=== PATIENT | male | born 1950 | race Caucasian/White ===

== ENCOUNTER 2024-12-13 06:49 | Day surgery (SDC) | payer MEDICARE, OTHER, SELFPAY ==
--- OUTSIDE RECORDS SUMMARY | 2024-12-08 11:32 | XMS_ITS ---
Author Organization [facility] Address [address] [place] [phone] Care Team Providers Care Maternity Floor Supervisor Name Role Phone Xu CAMP, Gigi Primary Care Provider Jesus Amaya Jr REASON FOR VISIT colon screening Encounters Encounter Location Date Provider Diagnosis [facility] [address] [place] [phone] 11/28/2024 Jesus Barbosa Jr Plan Of Treatment Next Appt Details Provider Name:Jesus grimaldo Jr, 12/13/2024 08:20:00 AM, [address] [place] [address] , [place], [place], [phone], Progress Notes * BRADEN LAURENDOB:1950 (74 yo M)Acc No.[id number]:11/28/2024 Progress Notes Patient:?BRADEN LAUREN Provider:?Jesus Barbosa MD :1950???Age:74 Y???Sex:Male Sandip e:11/28/2024 Address:[address] [place], [place] [id number] Pcp:Gigi Mcnair MD Subjective: * Chief Complaints: * ???1. Colon screening. * Medical History:? Objective: * Vitals:? Assessment: Plan: * Treatment: * * The named appointment provid er may or may not be the originator of this progress note, and it is not deemed complete until electronically signed by the appointment provider. Sign off status: Pending * Provider:?Jesus Barbosa MD Date:?0 11/28/2024 Generated for Rosy gibbs/Natalie/Timothyitting on:?12/08/2024 11:31 AM EDT
--- OUTSIDE RECORDS SUMMARY | 2024-12-08 11:32 | XMS_ITS | Patient Health Record ---
Author Organization [facility] Address [address] [place] [address] Care Team Providers Care Retail Stocker Name Role Phone Gigi Mcnair MD Primary Care Provider Jesus Amaya Jr Unavailable [phone] Allergies No Known Allergies Reason For Referral No Information Medications Medication SIG (Take, Route, Frequency, Duration) Notes Start Date End Date Status Atorvastatin Calcium 80 MG Oral for 90 Days Active Metoprolol Succinate ER 25 MG TAKE 1 TABLET BY MOUTH EVERY DAY Oral for 90 Days Active Alfuzosin HCl ER 10 MG TAKE 1 TABLET BY MOUTH EVERYDAY AT BEDTIME Oral for 90 Days Active Vitamin D 2000 UNIT 1 capsule Orally Onc e a day for 30 day(s) Active Flomax 0.4 MG 1 capsule Orally QOD Active Atorvastatin Calcium 80 MG 1 tablet Oral ly Once a day Active Metoprolol Succinate ER 25 MG 1 tablet Orally Once a day Active Cabergoline 0.5 MG 1/2 tablet Orally ev rajni week Active Aspir-81 81 MG 1 tablet Orally Once a day Active Cabergoline 0.5 MG Oral for 84 Days Active Levothyroxine Sodium 25 MCG 1 tablet in the morning on an empty stomach Orally Once a day Active Immunizations Vaccine Route Administration Date Status Comme nts Flu vaccine no Preserv 3 and > Unknown 03/24/2017 Admin istered Influenza Unknown 05/27/2018 Administered Influenza Unknown 04/05/2024 Administered Social History AUDIT-C (Standard) Question Answer Notes Did you have a drink contain ing alcohol in the past year? Yes How often did you have a dri nk containing alcohol in the past year? 2 to 4 times a month (2 points) How many drinks did you have on a typical day when you were drinking in the past year? 1 or 2 drinks (0 point) How often did you have six o r more drinks on one occasion in the past year? Never (0 point) Points 2 Interpretation Negative Problems Problem Type SNOMED Code ICD Code Onset Dates Problem Status W/U Status Risk Notes Problem 313700516 Colon cancer screening (Z12.11) Active confirmed Problem 528988070 Personal history of colonic polyps (Z86.010) Active confirmed Problem 100731868036997 termite treater helper (current) use of aspirin (Z79.82) Active confirmed Problem 533430260 Long-term use of aspirin therapy (Z79.82) Active confirmed Vital Signs Temperature 97.8 degrees Fahrenheit 11/21/2024 Blood pressure diastolic 01 mm Hg 11/21/2024 Height 70 in 11/21/2024 Blood pressure systolic 001 mm Hg 11/21/2024 Weight 162 lbs 11/21/2024 BMI 23.24 kg/m2 11/21/2024 Encounters Encounter Location Date Provider Diagnosis [facility] [address] [place] [phone] 11/21/2024 Jesus Barbosa Jr RLQ abdominal pain R10.31 ; Colon cancer screening Z12.11 ; Long-term use of aspirin therapy Z79.82 and Personal history of colonic polyps Z86.010 [facility] [address] [place] [phone] 11/08/2024 Jesus Barbosa Jr Assessments Encounter Date Diagnosis (ICD Code) Assessment Notes Treatment Notes Treatment Clinical Notes Section Notes 11/21/2024 Colon cancer screening (ICD-10 - Z12.11) We discussed his symptoms today. We reviewed his CT scan results. We will review his laboratory studies when they become available. His symptoms could be consistent with irritable bowel syndrome, especially in light of his bowel pattern changes. We discussed this today.His CAT scan results are very reassuring, and we recommended a trial of simethicone. He will undergo colonoscopy for his symptoms and his personal history of colon polyps. We discussed risks and benefits of the procedure today. He understands these and agrees to proceed. He is advised to stop aspirin 1 week before the procedure. 11/21/2024 RLQ abdominal pain (ICD-10 - R10.31) We discussed his symptoms today. We reviewed his CT scan results. We will review his laboratory studies when they become available. His symptoms could be consistent with irritable bowel syndrome, especially in light of his bowel pattern changes. We discussed this today.His CAT scan results are very reassuring, and we recommended a trial of simethicone. He will undergo colonoscopy for his symptoms and his personal history of colon polyps. We discussed risks and benefits of the procedure today. He understands these and agrees to proceed. He is advised to stop aspirin 1 week before the procedure. 11/21/2024 Long-term use of aspirin therapy (ICD-10 - Z79.82) We discussed his symptoms today. We reviewed his CT scan results. We will review his laboratory studies when they become available. His symptoms could be consistent with irritable bowel syndrome, especially in light of his bowel pattern changes. We discussed this today.His CAT scan results are very reassuring, and we recommended a trial of simethicone. He will undergo colonoscopy for his symptoms and his personal history of colon polyps. We discussed risks and benefits of the procedure today. He understands these and agrees to proceed. He is advised to stop aspirin 1 week before the procedure. 11/21/2024 Personal history of colonic polyps (ICD-10 - Z86.010) We discussed his symptoms today. We reviewed his CT scan results. We will review his laboratory studies when they become available. His symptoms could be consistent with irritable bowel syndrome, especially in light of his bowel pattern changes. We discussed this today.His CAT scan results are very reassuring, and we recommended a trial of simethicone. He will undergo colonoscopy for his symptoms and his personal history of colon polyps. We discussed risks and benefits of the procedure today. He understands these and agrees to proceed. He is advised to stop aspirin 1 week before the procedure. Plan Of Treatment Future Test Test Name Order Date COLONOSCOPY 12/25/2017 COLONOSCOPY 03/24/2019 COLONOSCOPY 11/21/2024 Next Appt Details Provider Name:Jesus grimaldo , 12/13/2024 08:20:00 AM, [address] [facility] , [place], [place], [phone], Insurance Providers Payer Name Payer Address Payer Phone Subscriber Number Group Number Insured Name Patient Relationship to Insured Coverage Start Date Coverage End Date MEDICARE OF [place] [address] [place] [address] [phone] [id number] ZMUDA, BRADEN Self - patient is the insured [facility] [place] [facility] [address] [place] [phone] [id number] BRADEN LAUREN Self - patient is the insured 7 Medical (General) History Medical History History ICD Code Colonoscopy 2018, cecal tubular adenoma, 5-year follow-up allergies elevated cholesterol prediabetes Sciatica elevated PSA Coronary artery disease with history of [place] 04/04, stent placement done at that time. high prolactin level Hypothyroidism Surgical History Surgery Date(Month/Year) stent placement 03/2016 hernia surgery
--- OUTSIDE RECORDS SUMMARY | 2024-12-08 11:32 | XMS_ITS ---
Author Organization [facility] Address [address] [place] [phone] Care Team Providers Care Prick Stitcher Name Role Phone Gigi Mcnair MD Primary Care Provider Jesus Amaya Jr [phone] REASON FOR VISIT rt lower abd pain Encounters Encounter Location Date Provider Diagnosis [facility] [address] [place] [phone] 11/08/2024 Jesus Barbosa Jr Plan Of Treatment Next Appt Details Provider Name:Jesus grimaldo Jr, 12/13/2024 08:20:00 AM, [address] [place] [address] , [place], [place], [phone], Progress Notes * BRADEN LAURENDOB:1950 (74 yo M)Acc No.[id number]:11/08/2024 Patient:?BRADEN LAUREN :1950???Age:74 Y???Sex:Male Address:[address] [place] [id number] * true * Date:? Generated for Printi ng/Faxing/eTransmitting on:?12/08/2024 11:31 AM EDT
--- OUTSIDE RECORDS SUMMARY | 2024-12-08 11:32 | XMS_ITS ---
Author Organization [facility] Address [address] [place] [address] Care Team Providers Care Laborer Hoisting Name Role Phone Gigi Mcnair MD Primary Care Provider Jesus Amaya Jr Unavailable Allergies No Known Allergies REASON FOR VISIT Patient presents today for lower abdominal pain ( ct scan at [facility] on 11/11) Medications Medication SIG (Take, Route, Frequency, Duration) Notes Start Date End Date Status Atorvastatin Calcium 80 MG Oral for 90 Days Active Metoprolol Succinate ER 25 MG TAKE 1 TABLET BY MOUTH EVERY DAY Oral for 90 Days Active Alfuzosin HCl ER 10 MG TAKE 1 TABLET BY MOUTH EVERYDAY AT BEDTIME Oral for 90 Days Active Flomax 0.4 MG 1 capsule Orally QOD Active Cabergoline 0.5 MG Oral for 84 Days Active Vitamin D 2000 UNIT 1 capsule Orally Onc e a day for 30 day(s) Active Atorvastatin Calcium 80 MG 1 tablet Oral ly Once a day Active Metoprolol Succinate ER 25 MG 1 tablet Orally Once a day Active Cabergoline 0.5 MG 1/2 tablet Orally ev rajni week Active Aspir-81 81 MG 1 tablet Orally Once a day Active Levothyroxine Sodium 25 MCG 1 tablet in the morning on an empty stomach Orally Once a day Active Social History AUDIT-C (Standard) Question Answer Notes [...] Never (0 point) Points 2 Interpretation Negative Vital Signs Temperature 97.8 degrees Fahrenheit 11/22/19 25 Blood pressure systolic 001 mm Hg 11/22/19 25 Blood pressure diastolic 01 mm Hg 025 Height 70 in 11/21/2024 Weight 162 lbs 11/21/2024 BMI 23.24 kg/m2 11/21/2024 Encounters Encounter Location Date Provider Diagnosis [facility] [address] [place] [address] 11/21/2024 Jesuskatrina Barbosa Jr RLQ abdominal pain R10.31 ; Colon cancer screening Z12.11 ; Long-term use of aspirin therapy Z79.82 and Personal history of colonic polyps Z86.010 Assessments Encounter Date Diagnosis (ICD Code) Assessment Notes Treatment Notes Treatment Clinical Notes Section Notes 11/21/2024 RLQ abdominal pain (ICD-10 - R10.31) [...] aspirin 1 week before the procedure. 11/21/2024 Colon cancer screening (ICD-10 - Z12.11) [...] Future Test Test Name Order Date COLONOSCOPY 11/21/2024 Next Appt Details Follow Up: 1 Year, Reason: Provider Name:Jesus grimaldo , 12/13/2024 08:20:00 AM, [address] [place] [address], [phone], Progress Notes * BRADEN LAUREN JocelynDOB:1950 (74 yo M)Acc No.[id number]:11/21/2024 Progress Notes Patient:?BRADEN LAUREN Provider:?Jesus Barbosa MD :1950???Age:74 Y???Sex:Male Sandip e:11/21/2024 Address:[address] [place], [place] [phone] Pcp:Gigi Mcnair MD Subjective: * Chief Complaints: * ???1. Patient presents today for lower abdominal pain ( ct scan at [facility] on 11/11). * HPI: ???New symptom(s):? Braden is a pleasant 74-year-old man seen today in consultation. He has a personal history of colon polyps and last underwent colonoscopy in 2019 with removal of a tubular adenoma. We reviewed this today About 3 months ago he developed right sided abdominal pain which she describes as a soreness this is in the lower quadrant just above the belt line. Associated with this over the past 1 to 2 years he has noted about 5-7 mornings having 2 bowel movements per day instead of his usual 1. There is no rectal bleeding or rectal pain. Over the last 3 months as well he has had complaints of gas which if he passes improves the soreness. He gets an occasional pinch in the right side that comes and goes as well. This has been present for 3 months. He has not changed his diet, nor had any new medications. CT scanning was done on November 11 which is reviewed. It shows an enlarged prostate with mild diffuse bladder wall thickening possibly related to bladder outlet obstruction. He will follow- up with his urologist regarding this. Laboratory studies were reportedly done and are normal by his report. We will obtain these for review. * ROS:?General/Constitutional:?Change in appetite?denies.?Fatigue?denies.?ENT:?Patient denies?difficulty swallowing.?Respiratory:?Patient denies?shortness of breath.?Cardiovascular:?Patient denies?chest pain.?Gastrointestinal:?Comments?See HPI for details.?Genitourinary:?Difficulty urinating?denies.?Incontinence?denies.?Musculoskeletal:?Patient denies?muscle aches.?Skin:?Patient denies?pruritis.?Neurologic:?Patient denies?low back pain.?Psychiatric:?Patient denies?mental or physical abuse.? * Medical History:?Colonoscopy 2019, cecal tubular adenoma, 5-year follow-up, Allergies, Elevated cholesterol, Prediabetes, Sciatica, elevated PSA, Coronary artery disease with history of [place] 04/04, stent placement done at that time., High prolactin level, Hypothyroidism. * Surgical History:?hernia valentina janice , stent placement 03/2016 . * Family History:?Father: dece ased.?Mother: , diagnosed with HTN (hypertension).? Denies Family hx. NO family history of colon cancer or liver cancer. * Social History:?Tobacco Use:?Tobacco Use/Smoking?Are you a: nonsmoker.?Miscellaneous:?Marital status: . Occupation: retired. ???Drug/Alcohol:?AUDIT-C (Standard)?Did you have a drink containing alcohol in the past year??Yes,?How often did you have a drink containing alcohol in the past year??2 to 4 times a month (2 points),?How many drinks did you have on a typical day when you were drinking in the past year??1 or 2 drinks (0 point),?How often did you have six or more drinks on one occasion in the past year??Never (0 point),?Points?2,?Interpretation?Negative.? * Medications:?Taking Levothyr oxine Sodium 25 MCG Tablet 1 tablet in the morning on an empty stomach Orally Once a day , Taking Cabergoline 0.5 MG Tablet 1/2 tablet Orally every week , Taking Aspir-81 81 MG Tablet Delayed Release 1 tablet Orally Once a day , Taking Atorvastatin Calcium 80 MG Tablet 1 tablet Orally Once a day , Taking Metoprolol Succinate ER 25 MG Tablet Extended Release 24 Hour 1 tablet Orally Once a day , Taking Vitamin D 2000 UNIT Capsule 1 capsule Orally Once a day , Taking Flomax 0.4 MG Capsule 1 capsule Orally QOD , Taking Alfuzosin HCl ER 10 MG Tablet Extended Release 24 Hour TAKE 1 TABLET BY MOUTH EVERYDAY AT BEDTIME Oral , Taking Atorvastatin Calcium 80 MG Tablet Oral , Taking Metoprolol Succinate ER 25 MG Tablet Extended Release 24 Hour TAKE 1 TABLET BY MOUTH EVERY DAY Oral , Taking Cabergoline 0.5 MG Tablet Oral , Medication List reviewed and reconciled with the patient * Allergies:?N.K.D.A. Objective: * Vitals:?Wt:162lbs, Ht: 70 in , BMI:23.24Index, BP:001/01mm Hg, Temp:97.8, Wt-k.48. * Examination: ???General Examination: ?GENERAL APPEARANCE:?in no acute distress.?HEAD:?normocephalic.?EYES:?sclera non-icteric.?ORAL CAVITY:?mucosa moist.?NECK/THYROID:?no lymphadenopathy.?SKIN:?anicteric.?HEART:?S1, S2 normal, no murmurs.?LUNGS:?clear to auscultation bilaterally.?CHEST:?normal shape and expansion.?ABDOMEN:?soft, nontender, nondistended, bowel sounds present, no organomegaly .?EXTREMITIES:?no clubbing, cyanosis, or edema.?PSYCH:?cognitive function intact.? Assessment: * Assessment: 1.?RLQ abdominal pain - R10. 31 (Primary)???2.?Colon cancer screening - Z12.11???3.?Long-term use of aspirin therapy - Z79.82???4.?Personal history of colonic polyps - Z86.010??? We discussed his symptoms to day. We reviewed his CT scan results. We [...] stop aspirin 1 week before the procedure. Plan: * Treatment: 2.?Colon cancer screening?Procedure: COLONOSCOPY (Ordered for 11/21/2024)* sched for 12/13/24 at 9:10 am macmiralax 3.?Long-term use of aspirin therapy?Procedure: COLONOSCOPY (Ordered for 11/21/2024)* sched for 12/13/24 at 9:10 am macmiralax 4.?Personal history of colonic polyps?Procedure: COLONOSCOPY (Ordered for 11/21/2024)* sched for 12/13/24 at 9:10 am macmiralax * Procedure Codes:?3017F COLOR ECTAL CA SCREEN DOC REV, G9902 Pt scrn tbco and id as user, G9905 No pt tbco scrn rng, G8785 BP SCR NOT PRFRM REC REASON NOS * Preventive Medicine:? ??Screenings:?Fall Risk Screening?Fall Risk Assessment:?One fall with injury in the past year,?Screening:?One fall with injury in the past year,?Assessment:?Not performed, no reason specified,?Plan of Care:?Documented,?Type of fall plan of care:?Balance, strength and gait training or instruction provided.? * Follow Up:?1 Year * * Sign off status: Completed true * Provider:?Jesus Barbosa MD Date:?0 11/21/2024 Generated for Rosy gibbs/Natalie/eTransmitting on:?12/08/2024 11:32 AM EDT History and Physical Notes * HPI (History of Present Illness) Category Sub-Category Detail Notes Category Not es New symptom(s) Braden is a pleasant 74-year-old man seen today in consultation. He has a personal history of colon polyps and last underwent colonoscopy in 2019 with removal of a tubular adenoma. We reviewed this today About 3 months ago he developed right sided abdominal pain which she describes as a soreness this is in the lower quadrant just above the belt line. Associated with this over the past 1 to 2 years he has noted about 5-7 mornings having 2 bowel movements per day instead of his usual 1. There is no rectal bleeding or rectal pain. Over the last 3 months as well he has had complaints of gas which if he passes improves the soreness. He gets an occasional pinch in the right side that comes and goes as well. This has been present for 3 months. He has not changed his diet, nor had any new medications. CT scanning was done on November 11 which is reviewed. It shows an enlarged prostate with mild diffuse bladder wall thickening possibly related to bladder outlet obstruction. He will follow-up with his urologist regarding this. Laboratory studies were reportedly done and are normal by his report. We will obtain these for review. Examination Category Sub-Category Detail Notes Category Not es General Examination GENERAL APPEARANCE: in no acute di stress HEAD: normocephalic EYES: sclera non-icteric NECK/THYROID: no lymphadenopathy HEART: S1, S2 normal, no mu rmurs CHEST: normal shape and exp ansion LUNGS: clear to auscultatio n bilaterally ABDOMEN: soft, nontender, non distended, bowel sounds present, no organomegaly SKIN: anicteric EXTREMITIES: no clubbing, cyanosi s, or edema PSYCH: cognitive function i ntact ORAL CAVITY: mucosa moist
[2024-12-08 14:08] VITALS: BMI 23.2
[2024-12-13 07:03] VITALS: BP 138/77; PULSE 78; RESP 16; TEMP 36.7; O2SAT 97
[2024-12-13] MEDS: Lactated Ringers 1,000 ML 100 ML IVCONT (07:27)
--- NOTE | 2024-12-13 07:46 | HO.ANESPROP2 ---
[facility] Past Medical History Medical History (Updated 12/08/24 @ 13:52 by Lynda Sharma, JERE) Hyperprolactinemia Hypothyroidism CAD (coronary artery disease) Hx of myocardial infarction (~2015) Elevated PSA Sciatica Pre-diabetes Elevated cholesterol Enlarged prostate Hx of colonic polyps Surgical History Surgical History (Updated 12/08/24 @ 13:43 by Lynda Sharma RN) History of hernia surgery H/O heart artery stent (~2015) Hx of colonoscopy (~2018) Social History Social History Advance Directives: No Advance Directives Information Provided: Yes Meds Allergies Allergy/AdvReac Type Severity Reaction Status Date / Time No Known Allergies Allergy Unverified 04/05/20 15:29 [No Known Allergies*] Active Medications: Current Medications Lactated Ringer's (Lr) 1,000 mls @ 100 mls/hr IVCONT .Q10H YESENIA Last Admin: 12/13/24 07:27 Dose: 100 mls/hr Home Medications ?Medication ?Instructions ?Recorded ?Confirmed ?Last Taken ?Type alfuzosin 10 mg tablet,extended 10 mg PO BEDTIME 12/08/24 12/08/24 Unknown History release 24 hr aspirin 81 mg tablet,delayed 81 mg PO DAILY 12/08/24 12/08/24 Unknown History release atorvastatin 80 mg tablet 80 mg PO BEDTIME 12/08/24 12/08/24 Unknown History cabergoline 0.5 mg tablet mg PO QWEEK 12/08/24 Unknown History cholecalciferol (vitamin D3) 50 50 mcg PO DAILY 12/08/24 12/08/24 Unknown History mcg (2,000 unit) capsule (Vitamin D3) levothyroxine 25 mcg tablet 25 mcg PO QAM 12/08/24 12/08/24 Unknown History metoprolol succinate 25 mg 25 mg PO DAILY 12/08/24 12/08/24 Unknown History tablet,extended release 24 hr tamsulosin 0.4 mg capsule (Flomax) 0.4 mg PO Q OTHER DAY 12/08/24 12/08/24 Unknown History Exam Height,Weight and Vital Signs: Height 5 ft 10 in Weight 73.482 kg Last Vital Signs Temp 98.1 F 12/13/24 07:03 Pulse 78 12/13/24 07:03 Resp 16 12/13/24 07:03 BP 138/77 12/13/24 07:03 Pulse Ox 97 12/13/24 07:03 O2 Del Method Room Air 12/13/24 07:03
--- NOTE | 2024-12-13 07:46 | HO.ANESPROP2 ---
[facility] Past Medical History Medical History (Updated 12/08/24 @ 13:52 by Lynda Sharma RN) Hyperprolactinemia Hypothyroidism CAD (coronary artery disease) Hx of myocardial infarction (~2015) Elevated PSA Sciatica Pre-diabetes Elevated cholesterol Enlarged prostate Hx of colonic polyps Functional capacity: independent ambulation Family History Family history of problems with anesthesia: No Surgical History Surgical History (Updated 12/08/24 @ 13:43 by Lynda Sharma RN) History of hernia surgery H/O heart artery stent (~2015) Hx of colonoscopy (~2018) History of Problems with Anesthesia: No Social History Social History Advance Directives: No Advance Directives Information Provided: Yes Meds Allergies Allergy/AdvReac Type Severity Reaction Status Date / Time No Known Allergies Allergy Unverified 04/05/20 15:29 [No Known Allergies*] Active Medications: Current Medications Lactated Ringer's (Lr) 1,000 mls @ 100 mls/hr IVCONT .Q10H YESENIA Last Admin: 12/13/24 07:27 Dose: 100 mls/hr Home Medications ?Medication ?Instructions ?Recorded ?Confirmed ?Last Taken ?Type alfuzosin 10 mg tablet,extended 10 mg PO BEDTIME 12/08/24 12/08/24 Unknown History release 24 hr aspirin 81 mg tablet,delayed 81 mg PO DAILY 12/08/24 12/08/24 Unknown History release atorvastatin 80 mg tablet 80 mg PO BEDTIME 12/08/24 12/08/24 Unknown History cabergoline 0.5 mg tablet mg PO QWEEK 12/08/24 Unknown History cholecalciferol (vitamin D3) 50 50 mcg PO DAILY 12/08/24 12/08/24 Unknown History mcg (2,000 unit) capsule (Vitamin D3) levothyroxine 25 mcg tablet 25 mcg PO QAM 12/08/24 12/08/24 Unknown History metoprolol succinate 25 mg 25 mg PO DAILY 12/08/24 12/08/24 Unknown History tablet,extended release 24 hr tamsulosin 0.4 mg capsule (Flomax) 0.4 mg PO Q OTHER DAY 12/08/24 12/08/24 Unknown History Exam Height,Weight and Vital Signs: Height 5 ft 10 in Weight 73.482 kg Last Vital Signs Temp 98.1 F 12/13/24 07:03 Pulse 78 12/13/24 07:03 Resp 16 12/13/24 07:03 BP 138/77 12/13/24 07:03 Pulse Ox 97 12/13/24 07:03 O2 Del Method Room Air 12/13/24 07:03 Airway Mallampati Class: III TM Dist: >3cm Loose/Missing/Broken Teeth: No Heart: rrr Lungs: cta Assessment and Plan Final Anesthetic Review Family History of Problems with Anesthesia: No History of Problems with Anesthesia: No NPO: Yes ASA Class: III Final Preanesthetic Review: No Changes in Pt Med Stat, Meds/Allgs Chart Reviewed, Consent Obtained/Reviewed and Anes Risks/Benef Reviewed Patient Risk: Low Procedure Risk: Low Anesthetic Plan Anesthetic Plan: MAC: and Agree w/ Assess. and Plan Disposition: Standard PACU
--- NOTE | 2024-12-13 08:28 | MHC.SHP ---
Pre-Procedural Eval Section A - 24 Hr Update-Section A only Date of Service: 12/13/24 The patient is an INPATIENT: No Changes since office visit: No Cold of Flu in the past 2 weeks, No New Medical Problems, No Changes in Medication and No Patient answered all questions The patient has been examined within 24 hours of the surgical procedure. The History & Physical has been completed within 30 days and I have reviewed it.: Yes Section B - Complete if H&P > 30 days Chief Complaint: Encounter for screening for malignant neoplasm of Allergies: Allergies Allergy/AdvReac Type Severity Reaction Status Date / Time No Known Allergies Allergy Unverified 04/05/20 15:29 [No Known Allergies*] Plan I have reviewed the history and physical and performed a pertinent physical examination on my patient. No changes have occurred unless specified. Time Spent With Patient Time: Total time managing care of this patient today ____ minutes.
[2024-12-13 09:04] VITALS: BP 99/45; PULSE 59; RESP 12; TEMP 36.2; O2SAT 97
[2024-12-13 09:19] VITALS: BP 132/68; PULSE 54; RESP 12; TEMP 36.1; O2SAT 97
--- NOTE | 2024-12-13 09:32 | OP_ITS ---
DATE OF SERVICE: 12/13/2024 SURGEON: Jesus Barbosa MD INDICATIONS: Colon cancer screening, right lower quadrant pain and prior history of adenomatous colon polyps. PREOPERATIVE DIAGNOSIS: POSTOPERATIVE DIAGNOSIS: PROCEDURE PERFORMED: Colonoscopy to the terminal ileum with biopsy and snare polypectomy. ESTIMATED BLOOD LOSS: COMPLICATIONS: ANESTHESIA: Monitored anesthesia care. ASSISTANTS: SPECIMENS: DESCRIPTION OF PROCEDURE: History and physical was performed. The risks and benefits of the procedure were explained to the patient. Informed consent was obtained. The patient was placed in the left lateral decubitus position. A digital rectal exam was performed and was found to be normal. The Olympus pediatric video colonoscope was introduced into the rectum and advanced to the cecum. The cecum was identified by transillumination, palpation, and identification of ileocecal valve. Examination was performed. The scope was removed. He tolerated the procedure well and was returned to recovery area in stable condition. FINDINGS: The terminal ileum was examined and appeared normal. The visualized colonic mucosa was normal. The quality of the prep was good. Polyps were identified and removed as follows: In the cecum, was a less than 5 mm sessile polyp. This was removed with the biopsy forceps. A 2nd polyp in the right colon measuring less than 5 mm was also removed with biopsy forceps. A 3rd polyp in the right colon measuring approximately 8 mm was removed with a hot snare and recovered via suction. There was mild sigmoid diverticulosis. Retroflexed examination showed small internal hemorrhoids. IMPRESSION: Colon polyps. RECOMMENDATION: Followup the biopsy results. MD JORGE Oh/ANALISA / [id number]
== END 2024-12-13 09:54 | disposition home or self-care (01) ==
PROVIDERS: PCP Internal Medicine; Visit Provider Internal Medicine Gastroenterology
PROC: 0DJD8ZZ Inspection of Lower Intestinal Tract, Via Natural or Artificial Opening Endoscopic (ICD-10-PCS; CPT 45378; principal; 2024-12-13 08:20)
DX: Z12.11 Encounter for screening for malignant neoplasm of colon (principal); Z86.0101 Personal history of adenomatous and serrated colon polyps; D12.2 Benign neoplasm of ascending colon; K63.5 Polyp of colon; K57.30 Diverticulosis of large intestine without perforation or abscess without bleeding; K64.8 Other hemorrhoids; R10.31 Right lower quadrant pain; N40.0 Benign prostatic hyperplasia without lower urinary tract symptoms; N32.89 Other specified disorders of bladder; I25.10 Atherosclerotic heart disease of native coronary artery without angina pectoris; Z95.5 Presence of coronary angioplasty implant and graft; E78.00 Pure hypercholesterolemia, unspecified; E22.1 Hyperprolactinemia; E03.9 Hypothyroidism, unspecified; M54.30 Sciatica, unspecified side; R73.03 Prediabetes; I25.2 Old myocardial infarction; Z79.82 Long term (current) use of aspirin; Z79.899 Other long term (current) drug therapy
CPT/HCPCS: 45385; 45380; 88305; J2704